=== PATIENT | male | born 1955 ===

== ENCOUNTER 2019-07-21 20:45 | Inpatient (IN) | payer OTHER, MEDICARE ==
[~2019-07-21] VITALS: Ht 182.9 cm; Wt 66.0 kg
[~2019-07-21 20:45] MED LIST: ALBU90OI INH; ASCO500; ASPI325EC; ATOR40TA; AZIT250 PO; DOCU100; DOCU100 PO; ESOM20; HYDACE5; HYDACE5 PO; IBUP600 PO; LISI10; LISI5; LORA1; METO25ER; MULVITA; NAPR550 PO; NITR.4SL; OXYACE5T PO; PRED20 PO; ROSU10TA; VITB100
[2019-07-21 21:21] LABS: BASOPHILS ABSOLUTE AUTO 0.09 K/mm3 (0.00-0.23); BASOPHILS PERCENT AUTO 1 % (0-2); EOSINOPHILS ABSOLUTE AUTO 0.16 K/mm3 (0.00-0.68); EOSINOPHILS PERCENT AUTO 1 % (0-6); Hematocrit 47.2 % (37.0-53.0); Hemoglobin 15.9 g/dL (13.5-17.5); IMMATURE GRAN ABSOLUTE AUTO 0.05 K/mm3 (0.00-0.10); IMMATURE GRAN PERCENT AUTO 0 % (0-1); LYMPHOCYTES ABSOLUTE AUTO 1.82 K/mm3 (0.84-5.20); LYMPHOCYTES PERCENT AUTO 15 % (21-46); MONOCYTES PERCENT AUTO 9 % (4-13); Mean Corpuscular HGB 31.9 pg (26.0-34.0); Mean Corpuscular HGB Conc 33.7 g/dL (31.5-36.5); Mean Corpuscular Volume 95 fL (80-100); Mean Platelet Volume 9.2 fL (9.1-12.4); NEUTROPHILS PERCENT AUTO 73 % (41-73); Platelet Count 288 K/mm3 (150-400); RDW Standard Deviation 45.6 fL (35.1-46.3); Red Blood Cell Count 4.98 M/mm3 (4.30-5.90); White Blood Cell Count 11.92 K/mm3 (4.00-11.30)
[2019-07-21] MEDS ORDERED: MOTION RELIEF25 MG PO (21:33)
[2019-07-21 21:42] LABS: Alanine Aminotransfer (ALT/SGP 28 U/L (12-78); Albumin, Blood 3.6 g/dL (3.4-5.0); Albumin/Globulin Ratio 1.1 (0.8-1.8); Alk Phos 77 U/L (50-136); Anion Gap 5 mmol/L (6-16); Aspartate Aminotrans (AST/SGOT 26 U/L (12-37); Bilirubin, Total 0.3 mg/dL (0.1-1.0); Blood Urea Nitrogen 15 mg/dL (8-24); Bun/Creatinine Ratio 17.5 (12.0-20.0); CO2, Blood 27 mmol/L (21-32); Calcium, Blood 9.3 mg/dL (8.5-10.1); Chloride, Blood 101 mmol/L (98-108); Creatinine, Blood 0.86 mg/dL (0.60-1.20); Globulin, Blood 3.4 g/dL (2.2-4.0); Glomerular Filtration Rate >60 (60-); Glucose, Blood 100 mg/dL (70-99); Sodium, Blood 133 mmol/L (136-145); Troponin I 0.086 ng/mL (0.000-0.040)
[2019-07-21 21:54] LABS: International Normalized Ratio 0.97; Prothrombin Time Results 10.3 Sec (9.7-11.5)
--- NOTE | 2019-07-22 01:30 | NUR ---
PT ARRIVED TO ICU 8 FROM ER. ACCOMPANIED BY CHAIRMAN & CEO. PT ABLE TO SCOOT SELF TO BED FROM [facility]. DENIES CP, SOB, AND N/V. PT IS ON AMIODORONE GTT AT 1MG/HR AND HEPARIN GTT AT 13 UNITS/KG/HR. ON 2L O2 FOR PRECAUTION. SEE ASSESSMENT. NO SIGN OF DISTRESS AT THE MOMENT.
[2019-07-22] MEDS ORDERED: Ventolin/Prove6.7 GM INH (04:38)
[2019-07-22] MEDS ORDERED: LIPITOR80 MG PO (04:39)
[2019-07-22] MEDS ORDERED: AMLO10 PO (04:39)
[2019-07-22] MEDS ORDERED: Prinivil10 MG PO (04:39)
[2019-07-22] MEDS ORDERED: ASPI81CH PO (04:40)
[2019-07-22 06:19] LABS: Hemoglobin 14.9 g/dL (13.5-17.5); Mean Corpuscular HGB 32.3 pg (26.0-34.0); Mean Corpuscular HGB Conc 33.9 g/dL (31.5-36.5); Mean Corpuscular Volume 95 fL (80-100); Mean Platelet Volume 9.2 fL (9.1-12.4); Platelet Count 246 K/mm3 (150-400); RDW Coefficient Variation 13.2 % (11.7-14.2); RDW Standard Deviation 46.2 fL (35.1-46.3); Red Blood Cell Count 4.62 M/mm3 (4.30-5.90)
[2019-07-22 06:35] LABS: Troponin I 0.14 ng/mL (0.000-0.040)
[2019-07-22 06:39] LABS: Alanine Aminotransfer (ALT/SGP 25 U/L (12-78); Albumin, Blood 3.1 g/dL (3.4-5.0); Albumin/Globulin Ratio 1.1 (0.8-1.8); Alk Phos 68 U/L (50-136); Anion Gap 4 mmol/L (6-16); Aspartate Aminotrans (AST/SGOT 26 U/L (12-37); Bilirubin, Total 0.7 mg/dL (0.1-1.0); Blood Urea Nitrogen 11 mg/dL (8-24); Bun/Creatinine Ratio 13.5 (12.0-20.0); CO2, Blood 27 mmol/L (21-32); Calcium, Blood 8.5 mg/dL (8.5-10.1); Chloride, Blood 106 mmol/L (98-108); Creatinine, Blood 0.82 mg/dL (0.60-1.20); Globulin, Blood 2.9 g/dL (2.2-4.0); Glomerular Filtration Rate >60 (60-); Glucose, Blood 108 mg/dL (70-99); Potassium, Blood 4.4 mmol/L (3.5-5.5); Sodium, Blood 137 mmol/L (136-145)
--- NOTE | 2019-07-22 08:00 | NUR ---
INITIAL ASSESMENT PT CALM AND COOPREATIVE, FOLLOWING COMMANDS AND C/O LEFT ARM IV SITE PAIN, WARM BLANCKETS APPLIED TO ARM AND REPOSITIONED. ALERT AND ORIENT, HEPARIN REMAINS, AMIO REMAINS AND VSS, SB AND PALP PULSES T/O WITH NO EDEMA. 2L NC WITH SATS WNL. NPO AT THIS TIME, ABD FLAT AND SOFT BTS T/O NO BM. VOIDING VIA URINAL, CLEAR AND YELLOW. WILL CONT TO MONITOR AND PREP FOR POSSIBLE HEART CATH.
--- NOTE | 2019-07-22 12:24 | NUR ---
ECHOCARDIOGRAM COMPLETED
[2019-07-22 14:49] LABS: Troponin I 0.102 ng/mL (0.000-0.040)
--- NOTE | 2019-07-22 16:25 | NUR ---
PT UPDATE PT NUERO INTACT AND FOLLOWING COMMANDS. TR BANDS DECREASED TO 10ML BILAT AND WILL MONITOR FOR S/S OF BLEEDING. SB WITH SBP STABLE. HEPARIN QTT REMAINS OFF PER MD AND TO START FOLLOWING TR BAND DEFLATION AT 1999. AMIO QTT REMAINS. AFEBRILE AND PT ON RA WITH SATS WNL. CLEAR T/O. TOLERATING PO INTAKE NOW. NO BM. UO ADEQUATE CLEAR AND YELLOW VIA URINAL. WILL CONT TO MONITOR
--- NOTE | 2019-07-22 19:42 | NUR ---
PT RESTING QUIETLY IN BED. DENIES CP, N/V AND SOB. STATES HIS WRISTS ARE TENDER. HAS BILAT RADIAL ACCESS SITES FROM INFECTION CONTROL SPECIALIST TODAY. NO SIGN OF BLEEDING. GOOD PULSES BILAT, WARM DIGITS BILAT, SPO2 READS 93-94% ON BILAT INDEX FINGERS. TR BANDS ARE NOW DEFLATED. ARM BOARDS AND TR BANDS STILL IN PLACE. MONITORING CLOSELY FOR BLEEDING. EDUCATED ABOUT S/S OF BLEEDING AND COMPLICATIONS ASSOCIATED WITH BLEEDING. WILL RESTART HEPARIN GTT PER ORDERS. NO SIGN OF DISTRESS.
--- NOTE | 2019-07-23 00:55 | NUR ---
PT RESTING QUIETLY. BILAT RADIAL ACCESS SITES HAVE BEEN STABLE ALL NIGHT. TR BANDS HAVE BEEN DEFLATED SINCE 1944.
--- NOTE | 2019-07-23 03:38 | NUR ---
PT AWAKE. A/O X4. WANTED TO GET UP IN CHAIR. ASSISTED PT TO RECLINER. DENIES CP. BILAT RADIAL SITES REMAIN STABLE. REPORT GIVEN TO SHADY GONZALEZ WHO WILL ASSUME CARE. NO SIGN OF DISTRESS.
[2019-07-23 03:43] LABS: BASOPHILS ABSOLUTE AUTO 0.08 K/mm3 (0.00-0.23); BASOPHILS PERCENT AUTO 1 % (0-2); EOSINOPHILS ABSOLUTE AUTO 0.24 K/mm3 (0.00-0.68); EOSINOPHILS PERCENT AUTO 3 % (0-6); Hematocrit 43.1 % (37.0-53.0); Hemoglobin 14.8 g/dL (13.5-17.5); IMMATURE GRAN ABSOLUTE AUTO 0.02 K/mm3 (0.00-0.10); IMMATURE GRAN PERCENT AUTO 0 % (0-1); LYMPHOCYTES ABSOLUTE AUTO 1.46 K/mm3 (0.84-5.20); LYMPHOCYTES PERCENT AUTO 21 % (21-46); MONOCYTES ABSOLUTE AUTO 0.63 K/mm3 (0.16-1.47); MONOCYTES PERCENT AUTO 9 % (4-13); Mean Corpuscular HGB 32.2 pg (26.0-34.0); Mean Corpuscular HGB Conc 34.3 g/dL (31.5-36.5); Mean Corpuscular Volume 94 fL (80-100); Mean Platelet Volume 9.5 fL (9.1-12.4); NEUTROPHILS ABSOLUTE AUTO 4.65 K/mm3 (1.96-9.15); NEUTROPHILS PERCENT AUTO 66 % (41-73); Platelet Count 248 K/mm3 (150-400); RDW Coefficient Variation 13.2 % (11.7-14.2); RDW Standard Deviation 45.1 fL (35.1-46.3); Red Blood Cell Count 4.59 M/mm3 (4.30-5.90); White Blood Cell Count 7.08 K/mm3 (4.00-11.30)
[2019-07-23 03:58] LABS: Anion Gap 9 mmol/L (6-16); Blood Urea Nitrogen 8 mg/dL (8-24); Bun/Creatinine Ratio 10.5 (12.0-20.0); CO2, Blood 23 mmol/L (21-32); Calcium, Blood 8.3 mg/dL (8.5-10.1); Chloride, Blood 107 mmol/L (98-108); Creatinine, Blood 0.77 mg/dL (0.60-1.20); Glomerular Filtration Rate >60 (60-); Glucose, Blood 97 mg/dL (70-99); Sodium, Blood 139 mmol/L (136-145)
--- NOTE | 2019-07-23 04:20 | NUR ---
TOOK OVER CARE FROM CARLOS DOW @ 03:30. PATIENT FULLY AWAKE, ALERT, ORIENTED, NO C/O PAIN, NUMBNESS, TINGLING, WEAKNESS. RESPIRATORY PATIENT IS CLEAR TO ASCULTATION, NO S/S DISTRESS, SPO2 = 98% ON ROOM AIR. PATIENT IS IN A STABLE SINUS RHYTHM, HR = 65. BP = 165/113, WILL CALL DR FONG WHEN FINISHED WITH THIS NOTE. PULSES STRONG THROUGHOUT. AFEBRILE. ACTIVE BOWEL TONES X4. VOIDING PER URINAL. SKIN CLEAN/DRY/INTACT. X2 IV SITES, #18 IN LEFT ARM. HEPARIN GTT. RUNNING @ 15 U/KG/HR, AWAITING NEW PTT PER PHARMACY. PATIENT REQUESTED TO MOVE FROM BED TO CHAIR, OBLIGED WITH MINIMAL ASSISTANCE. WILL CONTINUE TO MONITOR.
--- NOTE | 2019-07-23 05:28 | NUR ---
SHIFT SUMMARY OTHER THAN INCREASING HEPARIN GTT, NO CHANGES FROM PREVIOUS NOTE. VSS. NO C/O PAIN. RADIAL ACCESS SITES C/D/I. WILL CONTINUE TO MONITOR.
--- NOTE | 2019-07-23 08:00 | NUR ---
INITIAL ASSESMENT PT CALM AND COOPREATIVE, FOLLOWING COMMANDS AND SITTING IN CHIAR AT BEDSIDE ALERT AND ORIENT, HEPARIN REMAINS BUT AMIO OFF WHEN BAG COMPLETE VSS, SB AND PALP PULSES T/O WITH NO EDEMA AND HYPERTENSIVE THIS AM. 2L NC WITH SATS WNL. NPO AFTER BREAKFAST PT HAS CTA SCHEDULED FOR TODAY, ABD FLAT AND SOFT BTS T/O NO BM. VOIDING VIA URINAL, CLEAR AND YELLOW. WILL CONT TO MONITOR
--- NOTE | 2019-07-23 12:22 | NUR ---
DR. WATTS CALLED TO ADVISE CORONARY CTA IS PLANNED FOR TOMORROW TO DETERMINE IF FURTHER INTERVENTION NEEDED. NPO MAY BE REMOVED
--- NOTE | 2019-07-23 16:00 | NUR ---
PT UPDATE PT REMAINS NEURO INTACT ALERT AND ORIENT TIMES FOUR AND VERY PLEASENT. VSS, SB TO SR, AFEBRILE AND NO EDEMA, HEPARIN QTT REMAINS. RA WITH SATS WNL CLEAR T/O. TOLERATING DIET WITH GOOD PO INTAKE. UO ADEQUATE. AT BEDSIDE WILL CONT TO MONITOR
--- NOTE | 2019-07-23 20:00 | NUR ---
ASSUME CARE: REPORT RECIEVED FROM OFF GOING RN BELLA. MONITOR INTACT SHOWING SINUS TERENCE-SINUS RHYTHM HEART RATE 50'S-60'S. DENIES DISCOMFORT. TR BAND SITES CLEAR. ARM BOARDS IN PLACE. LUNG SOUNDS CLEAR RESPIRATIONS REGULAR AND EASY ON ROOM AIR. SPO2 GREATER THAN 95% ABDOMEN SOFT WITH BOWEL SOUNDS FOUR QUADS. VOIDS OYUNG URINE PER URINAL. PAS TO LOWER EXTREMITIES NO EDEMA NOTED. REPOSITIONS SELF IN BED. CONTINUE TO MONITOR AND REPORT CHANGE IN PATIENT CONDITION.
[2019-07-24 04:20] LABS: Anion Gap 8 mmol/L (6-16); Blood Urea Nitrogen 9 mg/dL (8-24); Bun/Creatinine Ratio 11.6 (12.0-20.0); CO2, Blood 23 mmol/L (21-32); Calcium, Blood 8.3 mg/dL (8.5-10.1); Chloride, Blood 107 mmol/L (98-108); Creatinine, Blood 0.77 mg/dL (0.60-1.20); Glomerular Filtration Rate >60 (60-); Glucose, Blood 104 mg/dL (70-99); Sodium, Blood 138 mmol/L (136-145)
--- NOTE | 2019-07-24 06:30 | NUR ---
SHIFT SUMMARY : RESTS QUIETLY WHEN UNDISTURBED. MONITOR INTACT SHOWING SINUS TERENCE-SINUS RHYTHM. HEART RATE 50'S-60'S. DENIES DISCOMFORT. LUNG SOUNDS CLEAR RESPIRATIONS REGULAR AND EASY ON ROOM AIR . SPO2 95-98% ABDOMEN SOFT WITH BOWEL SOUNDS FOUR QUADS. VOIDS YOUNG URINE PER URINAL HAS BEEN NPO SINCE MIDNOC. PAS TO LOWER EXTREMITIES REPOSITIONS SELF IN BED NO EDEMA NOTED PEDAL PULSES PRESENT. CONTINUE TO MONITOR AND REPORT CHANGE IN PATIENT CONDITION.
--- NOTE | 2019-07-24 08:00 | NUR ---
ADDENDUM TO PREVIOUS NOTE TR BAND SITES REMAIN CLEAR WITH ARM BOARDS IN PLACE
--- NOTE | 2019-07-24 09:31 | NUR ---
DR. WATTS BY AND GAVE ORDERS FOR PT TO HAVE CTA. IV STARTED FOR CTA IN [place]. PT COMPLAINING OF PAIN IN L FA ABOVE TR BAND SITE. SITE IS A LITTLE FIRM, POSSIBLE SMALL HEMATOMA. PRESSURE HELD ON THE HARDNESS AND IT DID SOFTEN UP. PT STATES STILL PAINFUL THOUGH, WILL CONTINUE TO MONITOR.
--- NOTE | 2019-07-24 11:15 | NUR ---
CTA: PT TO CTA AND BACK WITH RN AND TRANSPORTER. PT TOLERATED WELL.
--- NOTE | 2019-07-24 13:53 | NUR ---
REASSESSMENT: PT HAS BEEN RESTING IN BED THROUGHOUT THE MORNING. HE GOT UP TO FOR HIS CTA, BUT OTHERWISE HAS BEEN IN BED. SR WITH PVCS, BP STABLE. DENIES CHEST PAIN. TR BAND SITES REMAINS STABLE. NO OTHER REQUESTS AT THIS TIME.
--- NOTE | 2019-07-24 17:58 | NUR ---
SHIFT SUMMARY: PT HAD NO UNEXPECTED EVENTS THIS SHIFT. HE HAD HIS CTA, STILL WAITING FOR REPORT. ALERT AND ORIENTED, SR WITH PVC, LUNGS CLEAR, RA. VOIDING IN THE URINAL. HEPARIN INFUSING PER PHARMACY. PT HAD SO AT THE BEDSIDE. CONTINUING TO MONITOR.
[2019-07-25 05:36] LABS: Anion Gap 6 mmol/L (6-16); Blood Urea Nitrogen 10 mg/dL (8-24); Bun/Creatinine Ratio 11.5 (12.0-20.0); CO2, Blood 24 mmol/L (21-32); Calcium, Blood 8.8 mg/dL (8.5-10.1); Chloride, Blood 105 mmol/L (98-108); Creatinine, Blood 0.87 mg/dL (0.60-1.20); Glomerular Filtration Rate >60 (60-); Glucose, Blood 106 mg/dL (70-99); Sodium, Blood 135 mmol/L (136-145)
--- NOTE | 2019-07-25 06:20 | NUR ---
SHIFT SUMMARY RESTS QUIETLY WHEN UNDISTURBED MONITOR INTACT SHOWING SINUS TERENCE SINUS RHYTHM. HEART RATE 50'S-70'S. DENIES DISCOMFORT. LUNGS CLEAR RESPIRATIONS REGULAR AND EASY ON ROOM AIR SPOT CHECK SPO2 95-98%. ABDOMEN SOFT WITH BOWEL SOUNDS FOUR QUADS. VOIDS YOUNG URINE PER URINAL. TAVAREZ WELL IN BED. CONTINUE TO MONITOR AND REPORT CHANGE IN PATIENT CONDITION
[2019-07-25 07:53] LABS: Mean Platelet Volume 9.9 fL (9.1-12.4); Platelet Count 253 K/mm3 (150-400)
--- NOTE | 2019-07-25 08:00 | NUR ---
CARE ASSUMED REPORT RECEIVED, CARE ASSUMED FROM CARLOS PYLE. PT AWAKE, TALKATIVE. VITALS STABLE. DENIES PAIN, DIZZINESS, SOB. AGREEABLE TO CALL FOR NEEDS.
--- NOTE | 2019-07-25 10:45 | NUR ---
DIZZINESS/SOB CALLED INTO ROOM PT REPORTS HAVING A SHORT EPISODE OF DIZZINESS AND SHORTNESS OF BREATH. RESOLVED BY THE TIME AT BEDSIDE. VITALS STABLE. NO CRITICAL CHANGES IN HEART RHYTHM. DID NOTICE SLIGHTLY WIDENED QRS AND INCREASED PVC'S ON RHYTHM STRIPS. SPOKE WITH DR. RODGERS. NEW ORDER FOR EKG, MAG AND TO INCREASE METOPROLOL DOSE. EKG COMPLETED. DR. RODGERS VISUALIZED EKG AND STATES IT IS THE PATIENT'S BASELINE. SINCE THEN, PT HAS HAD NO FURTHER EPISODES OF DIZZINESS OR SHORTNESS OF BREATH.
--- NOTE | 2019-07-25 12:00 | NUR ---
CTA RESULTS/PLAN VERIFIED WITH RADIOLOGY TO FOLLOW UP ON CTA RESULTS FROM YESTERDAY. WAS NOTIFIED THAT THIS MUST BE VERIFIED BY SOMEONE WHO READS CARDIAC CTAS. AT THIS TIME NO ONE IN HOUSE. ALSO PER RADIOLOGY, [facility] RADIOLOG[facility] DOES NOT READ CARDIAC CTAS. SPOKE WITH RUBEN ELECTRIC ORGAN CHECKER AND JERMAINE COMMUNICATION STUDIES PROFESSOR WHO FOLLOWED UP ON PLAN FOR PATIENT. PLAN IS THAT THE PATIENT WILL GO TO MOISTURE METER READER TOMORROW REGARDLESS OF CTA RESULTS, PER DR. RODGERS. PT UPDATED BY THIS RN AND DR. RODGERS AND AGREEABLE TO PLAN. EXPRESSED FRUSTRATION THAT HE HAD NOT BEEN TOLD THIS INFORMATION PRIOR, AND THAT RATHER THAT IT WAS A "WAIT AND SEE PLAN." WILL CONTINUE TO REINFORCE EDUCATION PROVIDED BY DR. RODGERS TO PATIENT.
--- NOTE | 2019-07-25 18:09 | NUR ---
SUMMARY SINCE PREVIOUS NOTE, PT HAS HAD NO EPISODES OF DIZZINESS OR SHORTNESS OF BREATH. DENIES CHEST PAIN THROUGHOUT SHIFT. VITALS STABLE THROUGHOUT SHIFT. NO ACUTE CHANGES NOTED TO HEART MONITOR. PT HAS CALLED APPROPRIATELY FOR NEEDS. INDEPENDENT IN ROOM TO USE URINAL. PT'S GIRLFRIEND AT BEDSIDE MAJORITY OF AFTERNOON. EDUCATION FROM DR. RODGERS REINFORCED MULTIPLE TIMES THROUGHOUT SHIFT AND PT AGREEABLE TO PLAN OF CARE.
--- NOTE | 2019-07-25 19:00 | NUR ---
ASSUMED CARE ASSUMED CARE OF PATIENT. AWAKE AND ALERT. ORIENTED X3. COOPERATIVE WITH CARE. DENIES C/O PAIN OF DISCOMFORT. RESPIRATIONS EVEN AND UNLABORED. DENIES SOB AT THIS TIME. RA SATS 96%. VOIDING WITHOUT DIFFICULTY. HEPARIN GTT INFUSING PER PHARMACY AT 18UNITS/KG/HR. RIGHT AND LEFT RADIAL SITES WITH DRSG C/D/I. MILDLY TENDER. CMS INTACT. SEE SHIFT ASSESSMENT FOR FULL ASSESSMENT.
--- NOTE | 2019-07-25 19:13 | NUR ---
REPORT TO CARLOS HOLLAND TO ASSUME CARE
[2019-07-26 03:53] LABS: Hematocrit 45.3 % (37.0-53.0); Hemoglobin 15.5 g/dL (13.5-17.5); Mean Corpuscular HGB 31.9 pg (26.0-34.0); Mean Corpuscular HGB Conc 34.2 g/dL (31.5-36.5); Mean Corpuscular Volume 93 fL (80-100); Mean Platelet Volume 9.6 fL (9.1-12.4); Platelet Count 243 K/mm3 (150-400); RDW Coefficient Variation 12.8 % (11.7-14.2); RDW Standard Deviation 44.2 fL (35.1-46.3); Red Blood Cell Count 4.86 M/mm3 (4.30-5.90); White Blood Cell Count 7.29 K/mm3 (4.00-11.30)
[2019-07-26 04:10] LABS: Anion Gap 6 mmol/L (6-16); Blood Urea Nitrogen 11 mg/dL (8-24); Bun/Creatinine Ratio 13.5 (12.0-20.0); CHOL/HDL RATIO 3.7; CO2, Blood 24 mmol/L (21-32); Calcium, Blood 8.8 mg/dL (8.5-10.1); Chloride, Blood 108 mmol/L (98-108); Cholesterol 176 mg/dL (50-200); Creatinine, Blood 0.82 mg/dL (0.60-1.20); Glomerular Filtration Rate >60 (60-); Glucose, Blood 107 mg/dL (70-99); HDL Cholesterol 48 mg/dL (>39); LDL/HDL RATIO 2.3; Low Density Lipoprotein Chol 109 mg/dL (0-110); Potassium, Blood 4.1 mmol/L (3.5-5.5); Sodium, Blood 138 mmol/L (136-145); Triglycerides 94 mg/dL (30-160); Very Low Density Lipoprot Chol 18 mg/dL (6-32)
--- NOTE | 2019-07-26 05:51 | NUR ---
SHIFT SUMMARY NO ACUTE CHANGES. SLEPT WHEN UNDISTURBED. ROUSES EASILY TO STIMULI. DENIES C/O PAIN OR DISCOMFORT. DENIES DIZZINESS OR SOB. RA SATS STABLE. VS STABLE T/O SHIFT. VOIDING WITHOUT DIFFICULTY. PT IS MILDLY ANXIOUS REGARDING PLAN OF CARE. HAS BEEN NPO SINCE APPROXIMATELY 0230 FOR POSSIBLE PCI. WILL REPORT TO DAY SHIFT RN WHEN AVAILABLE.
--- NOTE | 2019-07-26 07:57 | NUR ---
SPOKE TO DR. WATTS. STATED THAT HE WILL BE TAKING PATIENT TO CYBER TRANSPORT SYSTEMS SPECIALIST TODAY. STATED TO GIVE AM MEDICATIONS INCLUDING ASA AND BRILINTA AND TO HOLD THE HEPARIN DRIP OF NOW.
--- NOTE | 2019-07-26 08:10 | NUR ---
INITIAL ASSESSMENT PATIENT ALERT AND ORIENTED X 4, AFEBRILE. PATIENT DENIES PAIN, CHEST PAIN/ PRESSURE/ DISCOMFORT. PATIENT SATTING 97% ON RA. LUNGS CLEAR IN UPPER LOBES, COARSE IN LOWER LOBES. PATIENT HAS OCCASIONAL, NONPRODUCTIVE COUGH. PATIENT REPORTS COUGH IS FROM BEING A SMOKER. PATIENT IN SB TO SR WITH BBB. HR 50S TO 60S. BP STABLE. PULSES STRONG. NO EDEMA NOTED. SCDS IN PLACE. GI AND WNL. URINAL AT BEDSIDE. LAST BM 2 DAYS AGO. BILAT RADIAL SCOUT EXECUTIVE ACCESS SITES WNL- NO BLEEDING, BRUISING, HEMATOMA NOTED. HEPARIN DRIP INFUSING AT 18 UNITS/ KG/ HOUR WHEN CAME ON SHIFT. SPOKE WITH DR. WATTS AND HE STATED TO PLACE HEPARIN ON STANDBY UNTIL PATIENT GOES TO SCOUT EXECUTIVE AGAIN TODAY. PATIENT HAS BEEN NPO SINCE AROUND 0300 PER LANDSCAPING MANAGER NURSE. NO COMPLAINTS AT THIS TIME. BED LOW, CALL LIGHT IN REACH. WILL CONTINUE TO MONITOR PATIENT FREQUENTLY THROUGHOUT SHIFT.
--- NOTE | 2019-07-26 11:03 | NUR ---
REPORT GIVEN TO ASSUMING NURSE, HANANE TAFOYA. NO ACUTE CHANGES TO NOTE ON. VITAL SIGNS HAVE REMAINED STABLE. NO COMPLAINTS.
--- NOTE | 2019-07-26 11:47 | NUR ---
CARE ASSUMED CARE AND REPORT ASSUMED FROM REINALDO GONZALEZ. PT SITTING UP IN BED TALKING ON PHONE. DENIES CHEST PAIN. VSS. NSR, HR 50S. BP WNL. AFBEBRILE. SEEN BY MD RODGERS AT BEDSIDE. NPO AT THIS TIME. AWAITING ICT SYSTEMS TEST ENGINEER. IV SALINE LOCKED. WILL CONTINUE TO MONITOR.
--- NOTE | 2019-07-26 12:10 | NUR ---
TRANSFER TO FIGHT MANAGER PT BEING TRANSPORTED TO FIGHT MANAGER BY FIGHT MANAGER RN.
--- NOTE | 2019-07-26 14:21 | NUR ---
RETURN TO ICU 1400 - PT RETURNS TO ICU AT THIS TIME. R GROIN HAS SHEATH SECURED AND WILL NEED TO BE REMOVED. WILL MONITOR PTT EACH HOUR. R PEDAL PULSES PRESENT. PT LYING FLAT AND IS EDUCATED ON THE NEED TO REMAIN FLAT WITH NO HEAD RAISING AT THIS TIME. MD WATTS BEDSIDE TALKING WITH PT. HR 50S. A/O X 3. NO BLEEDING FROM SITE AT THIS TIME. WILL CONTINUE TO MONITOR.
--- NOTE | 2019-07-26 16:07 | NUR ---
REASSESSMENT PT REMAINS FLAT WITH LEGS STRAIGHT. SHEATH REMAINS IN R GROIN. PEDAL PULSES REMAIN PRESENT. PT TOLERATING EATING A SANDWICH. PTT REMAINS HIGH. VSS. WILL CONTINUE TO MONITOR.
--- NOTE | 2019-07-26 18:37 | NUR ---
SHIFT SUMMARY PT WENT TO HR INTERN THIS AFTERNOON AND RETURNED WITH SHEATH IN R GROIN. ONCE PTT NORMALIZED, SHEATH WAS PULLED. UNABLE TO ASPIRATE BACK FROM LINE; MD RODGERS NOTIFIED AND VERBALLY GAVE OK TO PULL SHEATH ANYWAYS. MANUAL PRESSURE HELD FOR 20 MINUTES AND LUKAS DRESSING APPLIED. PT REMAINS HE IS TO REMAIN LYING FLAT FOR FEW HOURS. PEDAL PULSES PRESENT. VSS. DENIES NAUSEA. WILL GIVE BEDSIDE, HANDOFF REPORT TO CITLALLI RN.
--- NOTE | 2019-07-26 19:00 | NUR ---
CATH SITE CARE NO BLEEDING, NO HEMATOMA. PT STATES THERE IS SOME TENDERNESS
--- NOTE | 2019-07-26 19:30 | NUR ---
CATH SITE CARE: NO CHANGE FROM PREVIOUS ASSESSMENT
--- NOTE | 2019-07-26 20:00 | NUR ---
CATH SITE CARE: NO CHANGES FROM LAST ASSESSMENT. NO BLEEDING, NO HEMATOMA.
--- NOTE | 2019-07-26 21:00 | NUR ---
CATH SITE CARE: NO HEMATOMA, NO BLEEDING
--- NOTE | 2019-07-26 21:34 | NUR ---
ASSUMPTION OF CARE: PT AWAKE, A&O. C/O OF BACK PAIN WHILE ON FLAT TIME. LUNG SOUNDS CLEAR ON RA. PT IN SINUS RHYTHM, BBB, OCC BRADYCARDIA, OCC PACS. HR IN THE 60S, SBP IN THE 90S BUT STABLE. IV IN LFA AND RAC SL AND PATENT. BT PRESENT X 4. R GROIN SITE TENDER WITHOUT BLEEDING OR HEMATOMA. PLAN FOR AICD IN AM.
--- NOTE | 2019-07-26 23:00 | NUR ---
SITE CARE: NO BLEEDING, NO HEMATOMA, PLATINUM AND PALLADIUM KETTLE TENDER
--- NOTE | 2019-07-27 02:16 | NUR ---
CATH SITE CARE: NO BLEEDING, NO HEMATOMA, PT DOES NOT COMPLAIN OF ANY PAIN OR TENDERNESS AT SITE
--- NOTE | 2019-07-27 06:25 | NUR ---
SHIFT SUMMARY: PT A&O, PLEASANT, COOPERATIVE. LUNG SOUNDS CLEAR THROUGHOUT, SPO2 >90% ON RA. DENIES PAIN EXCEPT FOR SOME TENDERNESS TO R GROIN SITE AND L RADIAL SITE. AFEBRILE. PT SR-SB WITH OCC PACS AND BBB. SBP STABLE IN 90S. GI WNL AND CAN AMBULATE TO TOILET WITH ASSISTANCE. GI WNL-PT ABLE TO VOID INTO URINAL. BILAT RADIAL SITES, R FEM GROIN SITE. NO BLEEDING, HEMATOMA TO R GROIN. DRESSINGS C/D/I. IV TO LFA AND LAC-SL AND PATENT. AICD SCHEDULED FOR AM, CONSENT HAS BEEN SIGNED. PT HAS BEEN NPO SINCE MIDNIGHT.
--- NOTE | 2019-07-27 07:23 | NUR ---
CARE ASSUMED CARE AND REPORT ASSUMED FROM JACKSON GONZALEZ. PT SITTING UP IN BED. A/O X 3. LUNG SOUNDS CLEAR. VSS. LOCOMOTIVE INSPECTOR STAFF AT BEDSIDE TO TAKE PT FOR AICD INSERTION. MORNING MEDS HELD. 0730 - TO LOCOMOTIVE INSPECTOR.
--- NOTE | 2019-07-27 09:07 | NUR ---
HANDOFF REPORT BEDSIDE, HANDOFF REPORT GIVEN TO BINA GONZALEZ IN PCU. PT TO BE TRANSFERRED TO PCU POST PROCEDURE. BELONGINGS TAKEN TO PCU 15.
--- NOTE | 2019-07-27 11:38 | NUR ---
Pt arrives to PCU 15 on bed with Dip Stand Loader RN's at bedside. Report recieved from CARLOS Gregorio at bedside. pt alert and oriented, drowsy at times. LCW site visualized with laborer filter plant RN's; drainage noted to dressing unchanged per cath center RN's. Pt with lungs clear t/o, breathing even and unlabored on RA. Tele showing Sinus at 70, no pacer spikes noted at this point. Pt denies Chest Pain or pressure. Moderate LCW pain to AICD site. Sling in place per orders. Pt following directions and verbalizes understanding of [place] restrictions. Pt has been compliant so far. Pt able to make needs known, uses call light appropriately. Will continue to monitor.
--- NOTE | 2019-07-27 13:04 | NUR ---
Pt with increased and persistant pain to LCW. 25 mcg fentanyl given per orders with no relief per pt. MD Valencia notifed of pain; 50 mcg one time fentanyl ordered and given per orders with mild relief. Upon assessment, dressing to LCW oozing small amount of new blood to left of dressing, increased bruising to chest distal and lateral to dressing. Ice applied. Tylenol given per orders. Dr. Carreon notified of changes and states will come to bedside to assess. Pt updated.
--- NOTE | 2019-07-27 14:13 | NUR ---
Pt remains painful, but stating that ice is helping, pressure dressing remains intact. Pt resting, watching television. Will continue to monitor.
--- NOTE | 2019-07-27 15:51 | NUR ---
[facility] CALLED to [facility] appointment with [facility]. [facility] is speaking with [facility] at this time and follow up appointment with PCP scheduled for 08/03/19 at 1400.
--- NOTE | 2019-07-27 18:36 | NUR ---
Shift Summary VSS. no acute changes, pressure dressing remains intact and no new drainage noted. Pt managing pain with ice and 1 tab of [place] as ordered. Lauri called and informed this RN to change dressing . Dr Garcia to take over care starting tomorrow, per Dr. Carreon. Pt with no acute concerns, alert and oriented, able to make needs knonw, uses call light. Voids in urinal at bedside. Pt pleasant and cooperative with care. No changes from initial assessment upon assuming care. No further questions from patient at this time, no further concerns from pt or pt's SO. Will continue to monitor.
--- NOTE | 2019-07-28 06:23 | NUR ---
SHIFT SUMMARY: PATIENT SLEPT WELL THIS SHIFT, ONE SMALL RUN OF TACHACARDIA LASTING APPROX 10 BEATS. PATIENT STATES AT THE TIME OF INCREASED HR HE ACCIDENTALLY JOSTLED HIS LEFT ARM AND FELT 'A LOT OF PAIN'. NORCO X2 TABS HAS BEEN PROVIDING THE MOST PAIN RELIEF PER PATIENT. NO OTHER ISSUES NOTED, VSS, CALL LIGHT WITHIN REACH. PATIENT DETERMINED TO GO HOME TODAY.
[2019-07-28] MEDS ORDERED: METO50ER PO (09:55)
[2019-07-28] MEDS ORDERED: NITR.4SL SL (09:56)
--- NOTE | 2019-07-28 14:26 | NUR ---
DISCHARGE SUMMARY PT A&Ox4. ANXIOUS AT TIMES. COOPERATIVE WITH CARE. PT RESTING IN BED T/O SHIFT. SBA IN ROOM. PRESSURE DRESSING REMOVED FROM SURGICAL WOUND ON LEFT CHEST PER ORDERS, GAUZE PLACED OVER SITE AND TAPED PER ORDERS. PT AICD INTEROGRATED THIS AM, CHEST XRAY COMPLETED THIS AM. ADRIEN, PURCHASING AGENT, NOTIFIED DR WATTS OF RUN OF VTACH ON NOC SHIFT AND DISCUSSED MEDICATIONS, ADRIEN ENTERED NEW ORDERS. PT REPORTS PAIN AT SURGICAL SITE, MEDICATED x2 WITH NORCO WITH POSITIVE RESULTS. PT DENIES NAUSEA AND SOB. PT DENIES CP AND LIGHTHEADED AND DIZZINESS T/O SHIFT. VSS, NO OTHER ACUTE CHANGES NOTED DURING SHIFT. PT EDUCATED ON DISCHARGE INSTRUCTIONS, FOLLOW UP APPOINTMENTS, MEDCIATIONS AND SURGICAL SITE CARE. FAXED PRESCRIPTIONS TO [facility] PER PT REQUEST. PHYSICAL PRESCRIPTION HANDED TO PT, SPOUSE USED RUBBER BAND TO WRAP AROUND GLASS CASE. AICD CARD PROVIDED TO PT. PT LEFT ROOM VIA WHEELCHAIR AT 1400. PT STABLE UPON DISCHARGE.
[2019-07-29] MEDS ORDERED: HYDR1TAB94 PO (09:45)
[2019-07-30] MEDS ORDERED: Pacerone400 MG PO (11:18)
== END 2019-07-28 14:08 | disposition home or self-care (01) | DRG 222 ==
LOC: ER 20:45 → ICUE 20:46 → ER 20:46 → ICUW 20:46 → ICUE 07-22 00:01 → ICUW 07-22 00:01 → ICUE 07-22 01:30 → ICUW 07-22 01:30 → PCU 07-27 08:57 → ICUE 07-27 08:57 → PCU 07-27 09:05
PROVIDERS: Emergency Medicine; Hospitalist; Internal Medicine; Pharmacist; Physician Assistant; ADMIT Internal Medicine
PROC: 4A023N7 Measurement of Cardiac Sampling and Pressure, Left Heart, Percutaneous Approach (ICD-10-PCS; 2019-07-22)
PROC: B211YZZ Fluoroscopy of Multiple Coronary Arteries using Other Contrast (ICD-10-PCS; 2019-07-22)
PROC: 4A023N7 Measurement of Cardiac Sampling and Pressure, Left Heart, Percutaneous Approach (ICD-10-PCS; 2019-07-26)
PROC: B211YZZ Fluoroscopy of Multiple Coronary Arteries using Other Contrast (ICD-10-PCS; 2019-07-26)
PROC: 0JH608Z Insertion of Defibrillator Generator into Chest Subcutaneous Tissue and Fascia, Open Approach (ICD-10-PCS; principal; 2019-07-27)
PROC: 02HK3KZ Insertion of Defibrillator Lead into Right Ventricle, Percutaneous Approach (ICD-10-PCS; 2019-07-27)
PROC: 02H43KZ Insertion of Defibrillator Lead into Coronary Vein, Percutaneous Approach (ICD-10-PCS; 2019-07-27)
PROC: 3E0132A Introduction of Anti-Infective Envelope into Subcutaneous Tissue, Percutaneous Approach (ICD-10-PCS; 2019-07-27)
DX: I21.4 Non-ST elevation (NSTEMI) myocardial infarction (principal); I77.73 Dissection of renal artery; J86.9 Pyothorax without fistula; I46.9 Cardiac arrest, cause unspecified; I50.22 Chronic systolic (congestive) heart failure; I25.729 Atherosclerosis of autologous artery coronary artery bypass graft(s) with unspecified angina pectoris; I42.0 Dilated cardiomyopathy; I25.119 Atherosclerotic heart disease of native coronary artery with unspecified angina pectoris; I11.0 Hypertensive heart disease with heart failure; E78.00 Pure hypercholesterolemia, unspecified; I72.3 Aneurysm of iliac artery; I25.5 Ischemic cardiomyopathy; K57.30 Diverticulosis of large intestine without perforation or abscess without bleeding; I25.2 Old myocardial infarction; Z95.5 Presence of coronary angioplasty implant and graft; F17.210 Nicotine dependence, cigarettes, uncomplicated; K21.9 Gastro-esophageal reflux disease without esophagitis; E78.5 Hyperlipidemia, unspecified; I25.10 Atherosclerotic heart disease of native coronary artery without angina pectoris; I25.82 Chronic total occlusion of coronary artery; J43.2 Centrilobular emphysema
CPT/HCPCS: 33249; 36415; 71045; 71046; 71275; 74175; 75574; 80048; 80053; 80061; 80069; 82550; 83036; 83735; 83880; 84484; 85025; 85027; 85049; 85347; 85610; 85730; 86850; 86900; 86901; 92920; 93005; 93010; 93306; 93455; 96361; 96365; 96366-59; 96368; 96375-59; 96376-59; 99152; 99153; 99285-25; A9270; A9270-GY; C1721; C1725; C1769; C1887; C1894; C1895; C1898; J0282; J0690; J1644; J2250; J2270; J3010; J7030; J7040; J7050; J7060; Q9967

== ENCOUNTER 2020-01-20 07:36 | Emergency (ER) | payer OTHER, MEDICARE ==
[~2020-01-20] VITALS: Ht 182.9 cm; Wt 70.3 kg
[~2020-01-20 07:36] MED LIST changes: +AMLO10 PO; +ASPI81CH PO; +HYDR1TAB94 PO; +LIPITOR80 MG PO; +METO50ER PO; +MOTION RELIEF25 MG PO; +NITR.4SL SL; +Pacerone400 MG PO; +Prinivil10 MG PO; +Ventolin/Prove6.7 GM INH
[2020-01-20] MEDS ORDERED: CLOP75 PO (07:54)
== END 2020-01-20 08:35 | disposition home or self-care (01) ==
LOC: ER 07:36
DX: L76.22 Postprocedural hemorrhage of skin and subcutaneous tissue following other procedure (principal); Z88.5 Allergy status to narcotic agent; Z79.899 Other long term (current) drug therapy; I25.2 Old myocardial infarction; I11.0 Hypertensive heart disease with heart failure; I50.22 Chronic systolic (congestive) heart failure; E78.00 Pure hypercholesterolemia, unspecified; F17.200 Nicotine dependence, unspecified, uncomplicated
CPT/HCPCS: 12001; 99282-25